=== PATIENT | male | born 1985 | race Caucasian/White ===

== ENCOUNTER 2019-04-30 20:16 | Emergency (ER) | payer OTHER ==
[~2019-04-30] VITALS: Ht 180.3 cm; Wt 83.9 kg
[~2019-04-30 20:16] MED LIST: DOXYCYCLINE 10100 MG PO; IBUPROFEN 800800 MG PO; NOHOMEMEDICATIONS; NORCO 5-325 TA1 EACH PO; UNABLE TO OBTAIN
[2019-04-30 21:20] VITALS: BP 134/92
== END 2019-04-30 21:20 ==
LOC: M.ERS 20:16
DX: R07.89 Other chest pain (principal); Z88.0 Allergy status to penicillin